=== PATIENT | male | born 1960 | race Caucasian/White ===

== ENCOUNTER 2017-10-05 11:57 | Emergency (ER) | payer SELFPAY ==
[2017-10-05] MEDS ORDERED: NEOSPORIN OINT 0.9 GM PKT (FLOOR STOCK) As Ordered (14:10)
== END 2017-10-05 14:26 | disposition home or self-care (01) ==
LOC: M ED 11:57
DX: S91.301A Unspecified open wound, right foot, initial encounter (principal); X58.XXXA Exposure to other specified factors, initial encounter; Y92.89 Other specified places as the place of occurrence of the external cause; Y99.0 Civilian activity done for income or pay; K21.9 Gastro-esophageal reflux disease without esophagitis; Z88.8 Allergy status to other drugs, medicaments and biological substances
CPT/HCPCS: 87186

== ENCOUNTER 2018-03-17 13:39 | Emergency (ER) | payer SELFPAY, OTHER ==
[2018-03-17] MEDS: INDOMETHACIN 25 MG CAP PO (15:43)
== END 2018-03-17 15:45 | disposition home or self-care (01) ==
LOC: M ED 13:39
DX: M76.51 Patellar tendinitis, right knee (principal); K21.9 Gastro-esophageal reflux disease without esophagitis; Z88.6 Allergy status to analgesic agent
CPT/HCPCS: 73030

== ENCOUNTER → 2018-06-05 | Outpatient (CLI) | payer MEDICAID | LOC: M OUTALCOH 07:54 | DX: Z13.89 Encounter for screening for other disorder (principal); F15.20 Other stimulant dependence, uncomplicated ==

== ENCOUNTER 2018-06-13 16:00 | Outpatient (RCR) | payer MEDICAID | END 2018-07-11 | LOC: M OUTALCOH 06-20 15:55 | DX: F15.20 Other stimulant dependence, uncomplicated (principal); F10.10 Alcohol abuse, uncomplicated ==

== ENCOUNTER 2018-07-17 11:31 | Outpatient (RCR) | payer MEDICAID | END 2018-08-10 | LOC: M OUTALCOH 07-24 16:00 | DX: F15.20 Other stimulant dependence, uncomplicated (principal); F10.10 Alcohol abuse, uncomplicated ==

== ENCOUNTER 2018-09-06 16:00 | Outpatient (RCR) | payer MEDICAID ==
[~2018-09-06 16:00] MED LIST: /AMLO25TA PO; ALLO300T2 PO; AUGMENTIN PO; BACT800T5 PO; CYMB60CA3 PO; INDO50CA PO; LYRI75CA PO; PERCOCET PO; TUMS500C PO
== END 2018-09-10 ==
LOC: M OUTALCOH 16:00
PROVIDERS: ATTEND Psychiatry & Neurology Psychiatry
DX: F15.20 Other stimulant dependence, uncomplicated (principal); F10.10 Alcohol abuse, uncomplicated

== ENCOUNTER → 2018-10-11 | Outpatient (RCR) | payer MEDICAID | LOC: M OUTALCOH 09-13 14:52 | PROVIDERS: ATTEND Psychiatry & Neurology Psychiatry | DX: F15.20 Other stimulant dependence, uncomplicated (principal); F10.10 Alcohol abuse, uncomplicated ==

== ENCOUNTER → 2018-11-08 | Outpatient (RCR) | payer MEDICAID | LOC: M OUTALCOH 10-18 16:00 | PROVIDERS: ATTEND Psychiatry & Neurology Psychiatry | DX: F15.20 Other stimulant dependence, uncomplicated (principal); F10.10 Alcohol abuse, uncomplicated ==

== ENCOUNTER 2018-12-07 08:45 | Outpatient (RCR) | payer MEDICAID | END 2018-12-09 | LOC: M OUTALCOH 08:45 | PROVIDERS: ATTEND Psychiatry & Neurology Psychiatry | DX: F15.20 Other stimulant dependence, uncomplicated (principal); F10.10 Alcohol abuse, uncomplicated ==

== ENCOUNTER 2019-01-01 14:00 | Outpatient (RCR) | payer MEDICAID ==
[~2019-01-01 14:00] MED LIST changes: -/AMLO25TA PO; -INDO50CA PO; +INDO50CA11 PO; +NORV2TAB PO; +OXYC1TAB23 PO; -PERCOCET PO
== END 2019-01-08 ==
LOC: M OUTALCOH 14:00
PROVIDERS: ATTEND Psychiatry & Neurology Psychiatry
DX: F15.20 Other stimulant dependence, uncomplicated (principal); F10.10 Alcohol abuse, uncomplicated

== ENCOUNTER 2019-02-06 16:00 | Outpatient (RCR) | payer MEDICAID | END 2019-02-08 | LOC: M OUTALCOH 16:00 | PROVIDERS: ATTEND Psychiatry & Neurology Psychiatry | DX: F15.20 Other stimulant dependence, uncomplicated (principal); F10.10 Alcohol abuse, uncomplicated ==

== ENCOUNTER 2019-03-05 13:00 | Outpatient (RCR) | payer MEDICAID | END 2019-03-10 | LOC: M OUTALCOH 13:00 | PROVIDERS: ATTEND Psychiatry & Neurology Psychiatry | DX: F15.20 Other stimulant dependence, uncomplicated (principal); F10.10 Alcohol abuse, uncomplicated ==

== ENCOUNTER 2019-04-08 16:00 | Outpatient (RCR) | payer MEDICAID, SELFPAY | END 2019-04-10 | LOC: M OUTALCOH 16:00 | PROVIDERS: ATTEND Psychiatry & Neurology Psychiatry | DX: F15.20 Other stimulant dependence, uncomplicated (principal); F10.10 Alcohol abuse, uncomplicated ==

== ENCOUNTER 2019-05-07 12:44 | Outpatient (RCR) | payer MEDICAID, SELFPAY ==
[~2019-05-07 12:44] MED LIST changes: -INDO50CA11 PO; +INDO50CA91 PO
== END 2019-05-11 ==
LOC: M OUTALCOH 12:44
PROVIDERS: ATTEND Psychiatry & Neurology Psychiatry
DX: F15.20 Other stimulant dependence, uncomplicated (principal); F10.10 Alcohol abuse, uncomplicated

== ENCOUNTER 2019-06-04 13:52 | Outpatient (RCR) | payer MEDICAID, SELFPAY | END 2019-06-10 | LOC: M OUTALCOH 13:52 | PROVIDERS: ATTEND Psychiatry & Neurology Psychiatry | DX: F15.20 Other stimulant dependence, uncomplicated (principal); F10.10 Alcohol abuse, uncomplicated ==

== ENCOUNTER 2019-07-01 12:51 | Outpatient (RCR) | payer MEDICAID | END 2019-07-11 | LOC: M OUTALCOH 12:51 | PROVIDERS: ATTEND Psychiatry & Neurology Psychiatry | DX: F15.20 Other stimulant dependence, uncomplicated (principal); F10.10 Alcohol abuse, uncomplicated ==

== ENCOUNTER 2019-08-05 16:00 | Outpatient (RCR) | payer MEDICAID | END 2019-08-10 | LOC: M OUTALCOH 16:00 | PROVIDERS: ATTEND Psychiatry & Neurology Psychiatry | DX: F15.20 Other stimulant dependence, uncomplicated (principal); F10.10 Alcohol abuse, uncomplicated ==

== ENCOUNTER 2019-09-09 16:00 | Outpatient (RCR) | payer MEDICAID | END 2019-09-10 | LOC: M OUTALCOH 16:00 | PROVIDERS: ATTEND Psychiatry & Neurology Psychiatry | DX: F15.20 Other stimulant dependence, uncomplicated (principal); F10.10 Alcohol abuse, uncomplicated ==

== ENCOUNTER → 2019-09-26 | Outpatient (REF) | LOC: M LAB 09:26 ==